=== PATIENT | female | born 2000 ===

== ENCOUNTER 2023-06-04 15:14 | Emergency (ER) | payer SELFPAY ==
[2023-06-04] VITALS (7 sets, daily range): BP systolic 108–170; BP diastolic 55–126
--- NOTE | 2023-06-04 16:12 | ED.GENMED ---
History of Present Illness
<Gisele Aguirre PA-C - Last Filed: 06/04/23 20:28>
General
Chief Complaint: Vaginal Bleeding
Source: patient
Exam Limitations: none
Time Seen by Provider: 06/04/23 15:38
Nursing documentation reviewed up to this point in time: agreed with
Travel History
Have you had any contact with someone who has COVID-19?: No
Do you have any symptoms of coronavirus? Fever > 100 degrees, chills, cough, shortness of breath, sore throat, loss of taste or smell, muscle aches, or headache?: No
History of Present Illness
History of Present Illness:
Patient is a 22-year-old female with no significant past medical history presenting for evaluation of vaginal bleeding with associated lower abdominal pain. Patient states that last night around 7 PM she started bleeding with bright red blood. She
does endorse passing some clots, as well. Patient states that her last menstrual period started on May 12 and lasted for about 3 to 4 days which is normal for patient. She then endorses a few days of pinkish colored discharge approximately 2
weeks ago which self resolved. Patient reports mild dizziness. No fever, chills, chest pain, shortness of breath
Patient is not on an oral contraceptive. Patient has never seen an UNIT SUPPORT REPRESENTATIVE. Patient has never had a Pap smear before.
Patient is sexually active with 1 partner.
Phy Exam
<Gisele Aguirre PA-C - Last Filed: 06/04/23 20:28>
Physical Exam
Physical Exam:
General: In no apparent distress, non-toxic
Vitals: Hypertensive, otherwise vital signs stable, afebrile
HEENT: Atraumatic, normocephalic; pupils equal round reactive light bilaterally, extraocular muscles intact, protecting airway
Neck: appears supple
CV: Regular rate and rhythm, heart sounds normal, no evidence of cyanosis
Resp: No evidence of respiratory distress, lungs clear
Abd: Soft, mild tenderness in lower abdomen without rebound or guarding, non-distended
Pelvic: Blood in vault, no clots noted; no other abnormalities seen
Extremities: No deformities, no evidence of cyanosis or edema
Neuro: alert and oriented; grossly intact
Psych: Normal affect
Skin: Intact, no rashes, well-perfused
Course
<Gisele Aguirre PA-C - Last Filed: 06/04/23 20:28>
Orders/Labs/Results
Orders:
Orders
06/04/23 16:08
0.9% Sodium Chloride 1000 ml [Nss] 1,000 ml IV BOLUS
06/04/23 16:09
Test Result ONCE
06/04/23 16:13
Type+Screen Urgent
Complete Blood Count/With Diff Urgent
Comprehensive Metabolic Panel Urgent
HCG, Serum Qualitative Screen Urgent
06/04/23 16:54
US Pelvis Only (non-obstetric) Urgent
Comment:
Reason For Exam: irregular vaginal bleeding
Abnormal Lab Results
06/04/23
16:13
Hgb 10.3 L g/dL
(12.0-16.0)
Hct 31.7 L %
(37.0-47.0)
MCV 70.8 L fL
(81.0-99.0)
MCH 23.0 L pg
(27.0-31.0)
MCHC 32.5 L g/dL
(33.0-37.0)
RDW 18.1 H %
(11.5-14.5)
Plt Count 524 H 10^3/uL
(130-400)
Creatinine 0.4 L mg/dL
(0.6-1.0)
Glucose 109 H mg/dl
(70-99)
AST 43 H U/L
(14-36)
ALT 55 H U/L
(0-35)
06/04/23 16:13
06/04/23 16:13
Vital Signs
Initial and Last Documented VS:
Initial Vital Signs
Temp Pulse Resp BP Pulse Ox
98.4 F 89 20 170/92 99
06/04/23 15:16 06/04/23 15:16 06/04/23 15:16 06/04/23 15:16 06/04/23 15:16
Last Documented Vital Signs
Temp Pulse Resp BP Pulse Ox
98.4 F 80 16 120/65 98
06/04/23 15:16 06/04/23 18:26 06/04/23 18:26 06/04/23 18:50 06/04/23 18:26
<Ignacia Donnelly MD - Last Filed: 06/04/23 17:05>
Orders/Labs/Results
Orders:
Orders
06/04/23 16:08
0.9% Sodium Chloride 1000 ml [Nss] 1,000 ml IV BOLUS
06/04/23 16:09
Test Result ONCE
06/04/23 16:13
Type+Screen Urgent
Complete Blood Count/With Diff Urgent
Comprehensive Metabolic Panel Urgent
HCG, Serum Qualitative Screen Urgent
06/04/23 16:54
US Pelvis Only (non-obstetric) Urgent
Comment:
Reason For Exam: irregular vaginal bleeding
Abnormal Lab Results
06/04/23
16:13
Hgb 10.3 L g/dL
(12.0-16.0)
Hct 31.7 L %
(37.0-47.0)
MCV 70.8 L fL
(81.0-99.0)
MCH 23.0 L pg
(27.0-31.0)
MCHC 32.5 L g/dL
(33.0-37.0)
RDW 18.1 H %
(11.5-14.5)
Plt Count 524 H 10^3/uL
(130-400)
Creatinine 0.4 L mg/dL
(0.6-1.0)
Glucose 109 H mg/dl
(70-99)
AST 43 H U/L
(14-36)
ALT 55 H U/L
(0-35)
06/04/23 16:13
06/04/23 16:13
Vital Signs
Initial and Last Documented VS:
Initial Vital Signs
Temp Pulse Resp BP Pulse Ox
98.4 F 89 20 170/92 99
06/04/23 15:16 06/04/23 15:16 06/04/23 15:16 06/04/23 15:16 06/04/23 15:16
Last Documented Vital Signs
Temp Pulse Resp BP Pulse Ox
98.4 F 80 16 120/65 98
06/04/23 15:16 06/04/23 18:26 06/04/23 18:26 06/04/23 18:50 06/04/23 18:26
<Gisele Aguirre PA-C - Last Filed: 06/04/23 20:28>
MDM/Problems Addressed
Differential Diagnosis Includes:
Menstrual bleeding, endometriosis, threatened /missed , ectopic , ruptured ovarian cyst
MDM/Problems Addressed:
Patient is a 22-year-old female with no significant past medical history presenting with concerns of vaginal bleeding since last night. LMP was beginning of May. She reports vaginal bleeding starting yesterday evening which was heavier than
usual and passing small clots. Mild lower abdominal pain and some mild dizziness. No chest pain, shortness of breath, vomiting. Patient unsure if she is . Patient is never been seen by UNIT SUPPORT REPRESENTATIVE in the past. Patient is hemodynamically
stable on arrival, afebrile. Physical exam as document above. She is very well-appearing, well-perfused. She has very mild lower abdominal tenderness on palpation. Pelvic exam shows bright red blood in vault, no visible clots. No other gross
abnormalities noted. Will check basic labs, test, type and screen. Will await test results and then proceed with ultrasound.
CBC shows mild anemia of 10.3 with no prior labs to compare to. CMP shows mild transaminitis�likely viral. Otherwise no clinically significant abnormalities test is negative. Will get pelvic ultrasound. Patient remains hemodynamically
stable, normotensive, in no apparent distress
Pelvic ultrasound with no abnormal findings noted.
Patient is very well-perfused, hemodynamically stable. She is asymptomatic at this time. She declines any dizziness when walking around room. Workup negative. Will discharge with return precautions. Patient will [facility] with [facility] to
establish [facility]necology care. Lengthy discussion using translating service with patient regarding return precautions. Patient comfortable with this plan. All questions answered.
Chronic conditions affecting care:
N/A
Acute Exacerbation and/or Progression of Chronic Illness:
N/A
<Gisele Aguirre PA-C - Last Filed: 06/04/23 20:28>
*Radiology
Radiology exam reviewed: radiology read reviewed
*Marine Operations Coordinator Interpretation
Rate: Marine Operations Coordinator- N/A
*Critical Care Note
Total Time (30-74mins, 75-104mins- exclusive of procedures): Not Applicable
ED Attending Note
<Gisele Aguirre PA-C - Last Filed: 06/04/23 20:28>
-
Portions of this chart may have been created with voice recognition software.� Occasional wrong word or��sound alike� substitutions may have occurred due to the inherent limitations of voice recognition software.
<Ignacia Donnelly MD - Last Filed: 06/04/23 17:05>
ED Attending Note
Patient seen and examined by attending physician: Yes
I performed the substantive portion of visit, reviewed & personally made and approve the management plan that is documented in note by myself or KIMANI.: Yes
ED Attending Note:
Patient appears very well perfused and comfortable. Heart sounds regular lungs are clear. Abdomen is soft and nondistended throughout. Awaiting ultrasound. Patient is mildly anemic, however, patient looks very well and stable and will likely go
home after ultrasound
Discharge Plan
Departure
Patient Disposition: Home (Routine Discharge)
Date of Disposition: 06/04/23
Time of Disposition: 18:55
Patient with high blood pressure during this ER visit?: Yes
Condition: Good
Covid-19: Not Applicable
Discharge Problem:
Vaginal bleeding
Instructions: Heavy Periods (DC), BLOOD PRESSURE
Prescriptions:
No Action
No Current Medications
0
Referrals:
[facility] - Follow up in 5-7 days
NONE,* [Family Provider] -
Activity Restrictions/Additional Instructions:
-Return to the emergency department with any severe, persistent bleeding, shortness of breath, severe fatigue, dizziness, lightheadedness, severe abdominal pain, severe pelvic pain, worsening in current symptoms, or any other concerns
-As discussed - you need to follow-up with the [facility] to establish [facility]necology care.
-It is important to stay well hydrated
Interventions
Interventions:
*Risk Screen - Suicide Last Done: 06/04/23 15:16
*General Assessment Last Done: 06/04/23 15:16
*Neglect/Abuse Screening Last Done: 06/04/23 15:16
*Nursing Disposition Last Done: 06/04/23 19:13
ED-Female Genitourinary Assessment Last Done: 06/04/23 16:26
Discharge Date and Time
Discharge Date/Time: 06/04/23 19:15
Print Language: CHINESE
[2023-06-04] MEDS: NSS 1000 IV (16:14)
[2023-06-04 16:30] LABS: % Basophils 0.4 % (0-2); % Eosinophils 5.6 % (0-6); % Immature Granulocytes 0.4 % (0-0.5); % Lymphocytes 32.7 % (20.5-51.1); % Monocytes 5.9 % (1.7-9.3); Absolute Eosinophils 0.3 10^3/uL (0-0.7); Absolute Lymphocytes 1.8 10^3/uL (1.2-3.4); Absolute Monocytes 0.3 10^3/uL (0.1-0.6); Absolute Neutrophils 3.1 10^3/uL (1.4-6.5); Hematocrit 31.7 % (37.0-47.0); Hemoglobin 10.3 g/dL (12.0-16.0); Mean Corp Hgb Conc. 32.5 g/dL (33.0-37.0); Mean Corpuscular Volume 70.8 fL (81.0-99.0); Mean Platelet Volume 8.4 fL (7.4-10.4); Nucleated Red Blood Cells % 0 %; Platelet Count 524 10^3/uL (130-400); Red Blood Cell Count 4.48 10^6/uL (4.20-5.40); Red Cell Dist. Width 18.1 % (11.5-14.5); White Blood Cell Count 5.6 10^3/uL (4.8-10.8)
[2023-06-04 16:38] LABS: HCG, Serum Qualitative Screen Negative
[2023-06-04 16:42] LABS: ALT (SGPT) 55 U/L (0-35); AST (SGOT) 43 U/L (14-36); Albumin 3.8 g/dl (3.5-5.0); Alkaline Phosphatase 90 U/L (38-126); Blood Urea Nitrogen 11 mg/dl (7-17); Calcium 9.3 mg/dl (8.4-10.2); Carbon Dioxide 26 mmol/L (22-30); Chloride 102 mmol/L (98-107); Glucose 109 mg/dl (70-99); Potassium 4.1 mmol/L (3.5-5.1); Sodium 136 mmol/L (135-145); Total Bilirubin 0.9 mg/dl (0.2-1.3); Total Protein 7.1 g/dl (6.3-8.2); eGFR > 60.00
== END 2023-06-04 19:15 | disposition home or self-care (01) ==
LOC: EMR 15:14
PROVIDERS: Physician Assistant; EMERGENCY PHYSICIAN Emergency Medicine
DX: N93.9 Abnormal uterine and vaginal bleeding, unspecified (principal); Z32.02 Encounter for pregnancy test, result negative; D64.9 Anemia, unspecified
CPT/HCPCS: 99284; 96360; 76856; 80053; 84703; 85025; 86850; 86900; 86901